=== PATIENT | male | born 1950 | race Caucasian/White ===

== ENCOUNTER 2018-09-09 06:14 | Day surgery (SDC) | payer OTHER ==
[2018-09-09] VITALS (9 sets, daily range): BP systolic 121–150; BP diastolic 76–93
[~2018-09-09] VITALS: Ht 170.2 cm; Wt 68.0 kg
[~2018-09-09 06:14] MED LIST: LANTUS SOL100 UNIT/1 SUBQ; METFORMIN HCL1000 M1 ORAL; XARELTO20 MG ORAL
[2018-09-09] MEDS ORDERED: Tobradex Opth Susp 2.5ml ONE (07:00)
[2018-09-09] MEDS ORDERED: Diclofenac Sod 0.1% Op Soln ONE (07:00)
[2018-09-09] MEDS ORDERED: Tropicamide 1% Opth 15ml Soln ONE (07:00)
[2018-09-09] MEDS ORDERED: Phenylephrine 2.5% Op 2ml Soln ONE (07:00)
[2018-09-09] MEDS ORDERED: Akten 3.5% 1ml Btl ONE (07:00)
[2018-09-09] MEDS ORDERED: Vigamox Opth Soln 3ml ONE (07:01)
[2018-09-09] MEDS: Diclofenac Sod 0.1% Op Soln RIGHT EYE SCH ×3 (07:02→07:39)
[2018-09-09] MEDS: Akten 3.5% 1ml Btl RIGHT EYE SCH ×3 (07:02→07:39)
[2018-09-09] MEDS: Tropicamide 1% Opth 15ml Soln RIGHT EYE SCH ×3 (07:03→07:39)
[2018-09-09] MEDS: Phenylephrine 2.5% Op 2ml Soln RIGHT EYE SCH ×3 (07:03→07:39)
[2018-09-09] MEDS: Tobradex Opth Susp 2.5ml RIGHT EYE SCH ×3 (07:03→07:39)
[2018-09-09] MEDS: Vigamox Opth Soln 3ml RIGHT EYE SCH ×3 (07:03→07:39)
[2018-09-09] MEDS ORDERED: BSS 500ml btl ONE (07:17)
[2018-09-09] MEDS ORDERED: Povidone-Iodine 5% opth solution ONE (07:17)
[2018-09-09] MEDS ORDERED: Sodium Hyaluronate 14 mg/ml 0.85ml ONE (07:17)
[2018-09-09] MEDS ORDERED: Lidocaine 1% MPF 10mg/ml 5ml ONE (07:17)
[2018-09-09] MEDS ORDERED: Dexamethasone 4mg/ml vial ONE (07:17)
[2018-09-09] MEDS ORDERED: BSS 15ml BTL ONE (07:17)
[2018-09-09] MEDS ORDERED: EPINEPHrine 1mg/1ml Amp ONE (07:17)
[2018-09-09] MEDS ORDERED: BRIMONIDINE TART5 ML LEFT EYE (07:29)
[2018-09-09] MEDS ORDERED: AMLODIPINE BESY10 MG ORAL (07:29)
[2018-09-09] MEDS ORDERED: CREON DR 12,001 EACH PO (07:29)
[2018-09-09] MEDS ORDERED: COZAAR50 MG ORAL (07:29)
[2018-09-09] MEDS ORDERED: REPAGLINIDE1 MG PO (07:29)
[2018-09-09] MEDS ORDERED: TIMOPTIC 0.5%1 EACH BOTH EYES (07:29)
[2018-09-09] MEDS ORDERED: RHOPRESSA2.5 ML LEFT EYE (07:29)
--- NOTE | 2018-09-09 07:41 | Pre-Procedure Note/Attestation ---
Pre-Procedure Note/Attestation Complete Prior to Procedure Planned Procedure: right Procedure Narrative: cataract extraction with implant right eye Indications for Procedure Pre-Operative Diagnosis: cataract right eye Attestation I attest that I discussed the nature of the procedure; its benefits; risks and complications; and alternatives (and the risks and benefits of such alternatives ), prior to the procedure, with the patient (or the patient's legal mortician supplies sales representative). I attest that, if there was a reasonable possibility of needing a blood transfusion, the patient (or the patient's legal mortician supplies sales representative) was given the [facility] standardized written summary, pursuant to the [place] Blood Safety Act ([place] Health and Safety Code # 1645, as amended). I attest that I re-evaluated the patient just prior to the surgery and that there has been no change in the patient's H&P, except as documented below: Dario Gray MD Sep 09, 2018 07:41
[2018-09-09] MEDS ORDERED: Midazolam 2mg/2ml Inj ONE (08:00)
[2018-09-09] MEDS ORDERED: LR 1000ml ONE (08:00)
[2018-09-09] MEDS ORDERED: fentaNYL 100 mcg/2 mL IV ONE (08:00)
[2018-09-09] MEDS ORDERED: Propofol 200mg/20ml IV ONE (08:00)
[2018-09-09] MEDS ORDERED: LR 1000ml 1,000 ML IVLG SCH (08:48)
--- NOTE | 2018-09-09 08:48 | Anethesia Preoperative Eval ---
Anesthesia Pre-op PMH/ROS General Date of Evaluation: Sep 09, 2018 Time of Evaluation: 08:16 Anesthesiologist: Adrien ASA Score: ASA 3 Mallampati Score Class I : Soft palate, uvula, fauces, pillars visible Class II: Soft palate, uvula, fauces visible Class III: Soft palate, base of uvula visible Class IV: Only hard plate visible Mallampati Classification: Class II Surgeon: Isaac Diagnosis: R eye cataract Surgical Procedure: R eye cataract extraction Anesthesia History: none Social History: smoking - h/o Family History: no anesthesia problems Allergies: Coded Allergies: STRAWBERRY (Verified Allergy, Intermediate, 09/08/18) ITCHING Uncoded Allergies: STATINS (Allergy, Intermediate, 09/08/18) MUSCLE PAIN Medications: see eMAR Patient NPO?: Yes Past Medical History Cardiovascular: Reports: HTN; Denies: CAD, [place], valve dz, arrhythmia, other Pulmonary: Denies: asthma, COPD, DAMARI, other Gastrointestinal/Genitourinary: Reports: GERD, CRI, other - Pacreatic CA s/p Sx stable; Denies: ESRD Neurologic/Psychiatric: Reports: depression/anxiety; Denies: dementia, CVA, TIA, other Endocrine: Reports: DM - stable on insulin; Denies: hypothyroidism, steroids, other HEENT: Reports: cataract (L), cataract (R), glaucoma Hematology/Immune: Reports: anemia - mild; Denies: DVT, bleeding disorder, other Musculoskeletal/Integumentary: Denies: OA, RA, DJD, DDD, edema, other PMH Narrative: as above PSxH Narrative: Eye Sx glaucoma, Whipple Anesthesia Pre-op Phys. Exam Physician Exam Last Vital Signs Date Time Temp Pulse Resp B/P (MAP) Pulse Ox O2 Delivery O2 Flow Rate FiO2 09/09/18 07:32 97.7 74 20 150/93 100 Room Air Constitutional: NAD Neurologic: CN 2-12 intact Cardiovascular: RRR, no M/R/G Respiratory: CTA Gastrointestinal: S/NT/ND Airway Exam Mallampati Score: Class II MO: full Neck: stiff ROM: limited Teeth: missing Dentures: upper, lower Anesthesia Pre-op A/P Labs see chart Accucheck 132 at admission Studies Pre-op Studies: EKG - SR Risk Assessment & Plan Assessment: ASA 3 Plan: MAC Status Change Before Surgery: No Pre-Antibiotics Drug: none Reno Jurado MD Sep 09, 2018 08:48
[2018-09-09] MEDS ORDERED: fentaNYL 100 mcg/2 mL IV PRN (09:00)
--- NOTE | 2018-09-09 09:01 | Brief Operative Note ---
Immediate Post Operative Note Operative Note Pre-op Diagnosis: cataract right eye Procedure: phacoemulsification of cataract with implant left eye Post-op Diagnosis: same as pre-op Surgeon: dario you Apron Worker: none Anesthesiologist: robert mancilla md Anesthesia: MAC Specimen: none Complications: none Condition: stable Fluids: none Estimated Blood Loss: none Drains: none Implant(s) used?: Yes Dario You MD Sep 09, 2018 09:01
--- NOTE | 2018-09-09 09:08 | Immediate Post-Op Evaluation ---
Immediate Post-Op Evalulation Immediate Post-Op Evalulation Procedure: R eye cataract extraction with IOL Date of Evaluation: Sep 09, 2018 Time of Evaluation: 09:07 IV Fluids: 200 Blood Products: none Estimated Blood Loss: none Urinary Output: none Blood Pressure Systolic: 156 Blood Pressure Diastolic: 91 Pulse Rate: 76 Respiratory Rate: 20 O2 Sat by Pulse Oximetry: 98 Temperature (Fahrenheit): 97.6 Pain Score (1-10): 1 Nausea: No Vomiting: No Complications none Patient Status: awake, patent, none Hydration Status: adequate Reno Jurado MD Sep 09, 2018 09:08
--- NOTE | 2018-09-09 11:47 | 48 Hour Post Anesthesia Eval ---
Post Anesthesia Evaluation Procedure: R eye cataract extraction with IOL Date of Evaluation: Sep 09, 2018 Time of Evaluation: 11:45 Blood Pressure Systolic: 148 0: 76 Pulse Rate: 72 Respiratory Rate: 22 Temperature (Fahrenheit): 97.6 O2 Sat by Pulse Oximetry: 98 Airway: patent Nausea: No Vomiting: No Pain Intensity: 1 Hydration Status: adequate Cardiopulmonary Status: stable Mental Status/LOC: patient returned to baseline Follow-up Care/Observations: n/a Post-Anesthesia Complications: none Follow-up care needed: ready to discharge Reno Jurado MD Sep 09, 2018 11:47
--- NOTE | 2018-09-09 17:45 | Operative Note - Dictated ---
DATE OF OPERATION: 09/09/2018 PREOPERATIVE DIAGNOSIS: Cataract, right eye. POSTOPERATIVE DIAGNOSIS: Cataract, right eye. PROCEDURE: Phacoemulsification of the cataract right eye with placement of posterior chamber intraocular lens. SURGEON: Dario Gray M.D. PNEUMATIC TESTER MECHANIC: None. ANESTHESIA: MAC/topical. ANESTHESIOLOGIST: Reno Jurado M.D. INDICATION FOR PROCEDURE: Poor vision, right eye. 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 DESCRIPTION OF PROCEDURE: The patient received a topical anesthetic block consisting of 3.5% Akten eye drops. The eye was prepped and draped in the usual manner. A lid speculum was placed and operating Zeiss microscope was positioned. A temporal corneal groove was made with a kayleigh blade. A SuperSharp blade made a stab incision at 12 o'clock position. A 0.1 mL of 1% intracameral lidocaine and epinephrine was given. Healon was instilled into the anterior chamber. The blunt cannula was used to lyse the posterior synechiae. The temporal corneal wound was completed with a trapezoidal kayleigh blade a 2.5/2.8 mm. A cystotome was used to create an anterior capsular flap. Utrata forceps were used to complete the capsulorrhexis. BSS on a cannula was used to hydrodissect the nucleus. The lens nucleus phacoemulsified in a phaco-fracture technique. Remaining cortical material with the I/A and the posterior capsule polished with the I/A on Cap vac. Healon was instilled in the capsular bag and anterior chamber and Tecnis foldable one-piece preloaded posterior chamber intraocular lens, model PCB00, power 19.5 diopters, serial #[id number] was placed in the capsular bag. The I/A tip was used to remove the Healon and position the lens. The wound edge was hydrated with BSS and a blunt-tipped cannula. The wound was checked and found to be watertight. The lid speculum was removed and a drop of TobraDex and Vigamox was placed. A clear plastic shield was taped over the eye. The patient tolerated well and left the operating room in good condition. Dario Gray M.D. ([facility]) DR: Vic JOB#: [id number] CC:
== END 2018-09-09 10:15 | disposition home or self-care (01) ==
LOC: SUR 06:14
DX: H25.11 Age-related nuclear cataract, right eye (principal); H40.9 Unspecified glaucoma; K57.90 Diverticulosis of intestine, part unspecified, without perforation or abscess without bleeding; J44.9 Chronic obstructive pulmonary disease, unspecified; E78.5 Hyperlipidemia, unspecified; I12.9 Hypertensive chronic kidney disease with stage 1 through stage 4 chronic kidney disease, or unspecified chronic kidney disease; E11.22 Type 2 diabetes mellitus with diabetic chronic kidney disease; N18.3 Chronic kidney disease, stage 3 (moderate); K21.9 Gastro-esophageal reflux disease without esophagitis; D63.1 Anemia in chronic kidney disease; Z91.018 Allergy to other foods; Z88.8 Allergy status to other drugs, medicaments and biological substances; Z85.07 Personal history of malignant neoplasm of pancreas; Z86.718 Personal history of other venous thrombosis and embolism; Z87.891 Personal history of nicotine dependence; Z82.49 Family history of ischemic heart disease and other diseases of the circulatory system
CPT/HCPCS: 66984; 82962; J0171; J1100; J2250; J2704; J3010; V2632; 94003; 94150